=== PATIENT | male | born 1975 | race Two or more races ===

== ENCOUNTER 2022-01-23 13:44 | Inpatient (IN) | payer OTHER ==
[2022-01-23 14:33] VITALS: BMI 29.0
[2022-01-23] MEDS ORDERED: IBUPROFEN 400 MG TABLET (FP) PO PRN (15:10)
[2022-01-23] MEDS ORDERED: MAG HYDROX/AL HYDROX/SIMETH 30 ML UNIT-DOSE CUP PO PRN (15:10)
[2022-01-23] MEDS ORDERED: NICOTINE POLACRILEX 4 MG GUM BUC PRN (15:10)
[2022-01-23] MEDS ORDERED: LOPERAMIDE HCL 2 MG CAPSULE PO PRN (15:10)
[2022-01-23] MEDS ORDERED: BENZOCAINE/MENTHOL (CHLORASEPTIC ) LOZENGE MM PRN (15:10)
[2022-01-23] MEDS ORDERED: MAGNESIUM CITRATE 300 ML BOTTLE PO PRN (15:10)
[2022-01-23] MEDS ORDERED: NICOTINE 10 MG CARTRIDGE (INHALER) IH PRN (15:10)
[2022-01-23] MEDS ORDERED: ONDANSETRON *ODT* 4 MG TABLET SL PRN (15:10)
[2022-01-23] MEDS ORDERED: DICYCLOMINE HCL 10 MG CAPSULE PO PRN (15:10)
[2022-01-23] MEDS ORDERED: BISMUTH SUBSALICYLATE 524 MG/30 ML PO PRN (15:10)
[2022-01-23] MEDS ORDERED: ACETAMINOPHEN 325 MG TABLET (FP) PO PRN ×2 (15:10)
[2022-01-23] MEDS ORDERED: methaDONE HCL 10 MG TABLET (FOR DETOX USE ONLY) PO ONE (16:30)
[2022-01-23] MEDS: hydrOXYzine PAMOATE 25 MG CAPSULE (FP) PO SCH ×2 (18:27→22:32)
[2022-01-23] MEDS: cloNIDine HCL 0.1 MG TABLET PO PRN (22:32)
[2022-01-23] MEDS: THIAMINE HCL 100 MG TABLET (FP) PO SCH (22:32)
[2022-01-23] MEDS: MELATONIN 5 MG TABLETS PO SCH (22:32)
[2022-01-23] MEDS: METHYL SALICYLATE/MENTHOL OINT 30 GM TUBE TP SCH (22:34)
[2022-01-24] MEDS: hydrOXYzine PAMOATE 25 MG CAPSULE (FP) PO SCH ×5 (07:44→22:25)
[2022-01-24] MEDS ORDERED: methaDONE HCL 10 MG TABLET (FOR DETOX USE ONLY) ONE (09:14)
[2022-01-24] MEDS ORDERED: VENLAFAXINE HCL 37.5 MG TABLET PO SCH (10:15)
[2022-01-24] MEDS: METHYL SALICYLATE/MENTHOL OINT 30 GM TUBE TP SCH ×2 (10:40→22:25)
[2022-01-24] MEDS: METHOCARBAMOL 500 MG TABLET PO PRN (10:40)
[2022-01-24] MEDS: PRENATAL VITAMINS W/ FOLIC ACID TABLET (FP) PO SCH (10:40)
[2022-01-24 11:02] LABS: HEMATOCRIT 41.8 % (35.4-49); HEMOGLOBIN 13.6 GM/dL (11.7-16.9); MCH 29.7 pg (25.7-33.7); MCHC 32.6 g/dl (32.0-35.9); PLATELET COUNT 197 10^3/uL (134-434); RBC 4.59 M/mm3 (4.00-5.60); RDW 13.9 % (11.9-15.9); WHITE BLOOD COUNT 6.7 K/mm3 (4.0-10.0)
[2022-01-24 11:04] LABS: BLOOD UREA NITROGEN 16.6 mg/dL (7-18)
[2022-01-24 11:06] LABS: CREATININE 0.8 mg/dL (0.55-1.3)
[2022-01-24 11:07] LABS: BILIRUBIN,TOTAL 0.6 mg/dL (0.2-1); TOT PROT 5.7 g/dl (6.4-8.2)
[2022-01-24] MEDS ORDERED: ARIPiprazole 2 MG TABLET PO SCH (11:15)
[2022-01-24] MEDS: FLUoxetine HCL 20 MG CAPSULE PO SCH (11:17)
[2022-01-24] MEDS: ARIPiprazole 2 MG TABLET PO SCH (17:26)
[2022-01-24] MEDS: VENLAFAXINE HCL 37.5 MG TABLET PO SCH (17:27)
[2022-01-24] MEDS: THIAMINE HCL 100 MG TABLET (FP) PO SCH (22:24)
[2022-01-24] MEDS: MELATONIN 5 MG TABLETS PO SCH (22:24)
[2022-01-25] MEDS: hydrOXYzine PAMOATE 25 MG CAPSULE (FP) PO SCH ×5 (05:38→22:18)
[2022-01-25] MEDS: PRENATAL VITAMINS W/ FOLIC ACID TABLET (FP) PO SCH (09:53)
[2022-01-25] MEDS: METHOCARBAMOL 500 MG TABLET PO PRN ×2 (09:54→22:18)
[2022-01-25] MEDS: METHYL SALICYLATE/MENTHOL OINT 30 GM TUBE TP SCH ×2 (09:55→22:48)
[2022-01-25] MEDS: ARIPiprazole 2 MG TABLET PO SCH (09:55)
[2022-01-25] MEDS: FLUoxetine HCL 20 MG CAPSULE PO SCH (09:56)
[2022-01-25] MEDS ORDERED: VENLAFAXINE HCL 75 MG TABLET PO ONE (10:00)
[2022-01-25] MEDS ORDERED: methaDONE HCL 10 MG TABLET (FOR DETOX USE ONLY) PO ONE (10:00)
[2022-01-25] MEDS: cloNIDine HCL 0.1 MG TABLET PO PRN ×2 (18:14→22:17)
[2022-01-25] MEDS: MAGNESIUM HYDROX 2400MG/30ML ORAL SUSPENSION 30 ML CUP PO PRN (18:16)
[2022-01-25] MEDS: MELATONIN 5 MG TABLETS PO SCH (22:17)
[2022-01-25] MEDS: THIAMINE HCL 100 MG TABLET (FP) PO SCH (22:17)
[2022-01-26] MEDS: hydrOXYzine PAMOATE 25 MG CAPSULE (FP) PO SCH ×5 (05:49→22:12)
[2022-01-26] MEDS ORDERED: methaDONE HCL 10 MG TABLET (FOR DETOX USE ONLY) ONE (09:16)
[2022-01-26] MEDS: FLUoxetine HCL 20 MG CAPSULE PO SCH (10:48)
[2022-01-26] MEDS: METHOCARBAMOL 500 MG TABLET PO PRN ×2 (10:48→17:52)
[2022-01-26] MEDS: PRENATAL VITAMINS W/ FOLIC ACID TABLET (FP) PO SCH (10:48)
[2022-01-26] MEDS: METHYL SALICYLATE/MENTHOL OINT 30 GM TUBE TP SCH ×2 (10:50→22:34)
[2022-01-26] MEDS: ARIPiprazole 2 MG TABLET PO SCH (10:50)
[2022-01-26] MEDS: VENLAFAXINE HCL 37.5 MG TABLET PO SCH (10:51)
[2022-01-26] MEDS: MAGNESIUM HYDROX 2400MG/30ML ORAL SUSPENSION 30 ML CUP PO PRN ×2 (17:54→22:13)
[2022-01-26] MEDS: MELATONIN 5 MG TABLETS PO SCH (22:12)
[2022-01-26] MEDS: THIAMINE HCL 100 MG TABLET (FP) PO SCH (22:12)
[2022-01-27] MEDS: hydrOXYzine PAMOATE 25 MG CAPSULE (FP) PO SCH ×5 (05:44→22:32)
[2022-01-27] MEDS ORDERED: methaDONE HCL 10 MG TABLET (FOR DETOX USE ONLY) PO ONE (10:00)
[2022-01-27] MEDS: METHOCARBAMOL 500 MG TABLET PO PRN (10:43)
[2022-01-27] MEDS: PRENATAL VITAMINS W/ FOLIC ACID TABLET (FP) PO SCH (10:43)
[2022-01-27] MEDS: FLUoxetine HCL 20 MG CAPSULE PO SCH (10:43)
[2022-01-27] MEDS: METHYL SALICYLATE/MENTHOL OINT 30 GM TUBE TP SCH ×2 (10:44→22:32)
[2022-01-27] MEDS: ARIPiprazole 2 MG TABLET PO SCH (10:44)
[2022-01-27] MEDS: VENLAFAXINE HCL 37.5 MG TABLET PO SCH (10:45)
[2022-01-27] MEDS: MELATONIN 5 MG TABLETS PO SCH (22:32)
[2022-01-27] MEDS: THIAMINE HCL 100 MG TABLET (FP) PO SCH (22:32)
[2022-01-28] MEDS: hydrOXYzine PAMOATE 25 MG CAPSULE (FP) PO SCH (05:23)
[2022-01-28 09:49] VITALS: BP 148/106; PULSE 78; TEMP 98.1
== END 2022-01-28 10:05 | disposition home or self-care (01) | DRG 773 ==
LOC: YASAS 13:44 → Y6N 16:16
PROVIDERS: ADMIT Allergy & Immunology; ATTEND Surgery
PROC: HZ2ZZZZ Detoxification Services for Substance Abuse Treatment (ICD-10-PCS; principal; 2022-01-23)
DX: F11.23 Opioid dependence with withdrawal (principal); F12.20 Cannabis dependence, uncomplicated; F17.210 Nicotine dependence, cigarettes, uncomplicated; F19.282 Other psychoactive substance dependence with psychoactive substance-induced sleep disorder; F25.1 Schizoaffective disorder, depressive type; K21.9 Gastro-esophageal reflux disease without esophagitis; Z91.011 Allergy to milk products
CPT/HCPCS: 36415; 80053; 85027; 86780; 93005; 93010; C9803-CS; J0735; U0003; U0005

== ENCOUNTER 2022-10-14 11:17 | Inpatient (IN) | payer OTHER ==
[2022-10-14 11:55] VITALS: BMI 29.7
[2022-10-14] MEDS ORDERED: BISMUTH SUBSALICYLATE 262 MG/15 ML BTL PO PRN (12:44)
[2022-10-14] MEDS ORDERED: BENZOCAINE/MENTHOL (CHLORASEPTIC ) LOZENGE MM PRN (12:44)
[2022-10-14] MEDS ORDERED: NICOTINE 7 MG/24 HOURS TOPICAL PATCH TD PRN (12:44)
[2022-10-14] MEDS ORDERED: IBUPROFEN 400 MG TABLET (FP) PO PRN (12:44)
[2022-10-14] MEDS ORDERED: IBUPROFEN 600 MG TABLET (FP) PO PRN (12:44)
[2022-10-14] MEDS ORDERED: ONDANSETRON *ODT* 4 MG TABLET SL PRN (12:44)
[2022-10-14] MEDS ORDERED: NICOTINE POLACRILEX 2 MG GUM BUC PRN (12:44)
[2022-10-14] MEDS ORDERED: POLYETHYLENE GLYCOL (HEALTHYLAX) 3350 17 GM PACKET PO PRN (12:44)
[2022-10-14] MEDS ORDERED: ACETAMINOPHEN 325 MG TABLET (FP) PO PRN ×2 (12:44)
[2022-10-14] MEDS ORDERED: MAG HYDROX/AL HYDROX/SIMETH 30 ML UNIT-DOSE CUP PO PRN (12:44)
[2022-10-14] MEDS ORDERED: NICOTINE 10 MG CARTRIDGE (INHALER) IH PRN (12:44)
[2022-10-14] MEDS ORDERED: LOPERAMIDE HCL 2 MG CAPSULE PO PRN (12:44)
[2022-10-14] MEDS ORDERED: MAGNESIUM HYDROX 2400MG/30ML ORAL SUSPENSION 30 ML CUP PO PRN (12:44)
[2022-10-14] MEDS ORDERED: DICYCLOMINE HCL 10 MG CAPSULE PO PRN (12:44)
[2022-10-14] MEDS ORDERED: NALOXONE HCL (KLOXXADO) 8 MG SPRAY NS PRN (12:44)
[2022-10-14] MEDS ORDERED: methaDONE HCL 10 MG TABLET (FOR DETOX USE ONLY) PO ONE (14:00)
[2022-10-14 15:25] LABS: HEMATOCRIT 42.4 % (35.4-49); HEMOGLOBIN 14.4 GM/dL (11.7-16.9); MCH 30.1 pg (25.7-33.7); MCHC 33.9 g/dl (32.0-35.9); MEAN CELL VOLUME 88.8 fl (80-96); MEAN PLT VOLUME 8.5 fl (7.5-11.1); PLATELET COUNT 243 10^3/uL (134-434); RBC 4.77 M/mm3 (4.00-5.60); RDW 13.6 % (11.9-15.9); WHITE BLOOD COUNT 8.4 K/mm3 (4.0-10.0)
[2022-10-14 15:42] LABS: CALCIUM 9.5 mg/dL (8.5-10.1)
[2022-10-14 15:43] LABS: ALBUMIN 4.1 g/dl (3.4-5.0); BLOOD UREA NITROGEN 23.5 mg/dL (7-18)
[2022-10-14 15:45] LABS: CREATININE 0.9 mg/dL (0.55-1.3)
[2022-10-14 15:47] LABS: BILIRUBIN,TOTAL 0.7 mg/dL (0.2-1); TOT PROT 7.6 g/dl (6.4-8.2)
[2022-10-14] MEDS ORDERED: MELATONIN 5 MG TABLETS PO SCH (22:00)
[2022-10-14] MEDS: METHOCARBAMOL 500 MG TABLET PO PRN (22:40)
[2022-10-14] MEDS: MELATONIN 5 MG TABLETS PO SCH (22:40)
[2022-10-14] MEDS: FAMOTIDINE 20 MG TABLET PO SCH (22:40)
[2022-10-14] MEDS: THIAMINE HCL 100 MG TABLET (FP) PO SCH (22:40)
[2022-10-14] MEDS: hydrOXYzine PAMOATE 25 MG CAPSULE (FP) PO PRN (22:40)
[2022-10-15] MEDS: FAMOTIDINE 20 MG TABLET PO SCH ×2 (10:22→23:20)
[2022-10-15] MEDS: PRENATAL VITAMINS W/ FOLIC ACID TABLET (FP) PO SCH (10:22)
[2022-10-15] MEDS: METHOCARBAMOL 500 MG TABLET PO PRN (13:26)
[2022-10-15] MEDS: hydrOXYzine PAMOATE 25 MG CAPSULE (FP) PO PRN (13:26)
[2022-10-15] MEDS: MELATONIN 5 MG TABLETS PO SCH (23:20)
[2022-10-15] MEDS: THIAMINE HCL 100 MG TABLET (FP) PO SCH (23:21)
[2022-10-16] MEDS ORDERED: methaDONE HCL 10 MG TABLET (FOR DETOX USE ONLY) PO ONE (10:00)
[2022-10-16] MEDS: FAMOTIDINE 20 MG TABLET PO SCH ×2 (10:29→22:02)
[2022-10-16] MEDS: PRENATAL VITAMINS W/ FOLIC ACID TABLET (FP) PO SCH (10:29)
[2022-10-16] MEDS ORDERED: ARIPiprazole 2 MG TABLET PO ONE (11:53)
[2022-10-16] MEDS ORDERED: FLUoxetine HCL 20 MG CAPSULE PO ONE (11:53)
[2022-10-16] MEDS ORDERED: VENLAFAXINE HCL 37.5 MG TABLET PO ONE (11:54)
[2022-10-16] MEDS: MELATONIN 5 MG TABLETS PO SCH (22:01)
[2022-10-16] MEDS: THIAMINE HCL 100 MG TABLET (FP) PO SCH (22:02)
[2022-10-16] MEDS: METHOCARBAMOL 500 MG TABLET PO PRN (22:04)
[2022-10-17] MEDS: hydrOXYzine PAMOATE 25 MG CAPSULE (FP) PO PRN ×2 (00:54→22:33)
[2022-10-17] MEDS: FAMOTIDINE 20 MG TABLET PO SCH ×2 (10:01→22:33)
[2022-10-17] MEDS: FLUoxetine HCL 20 MG CAPSULE PO SCH (10:01)
[2022-10-17] MEDS: PRENATAL VITAMINS W/ FOLIC ACID TABLET (FP) PO SCH (10:01)
[2022-10-17] MEDS: VENLAFAXINE HCL 37.5 MG TABLET PO SCH (10:02)
[2022-10-17] MEDS: ARIPiprazole 2 MG TABLET PO SCH (10:02)
[2022-10-17] MEDS: THIAMINE HCL 100 MG TABLET (FP) PO SCH (22:32)
[2022-10-17] MEDS: MELATONIN 5 MG TABLETS PO SCH (22:32)
[2022-10-18] MEDS: METHOCARBAMOL 500 MG TABLET PO PRN (01:48)
[2022-10-18] MEDS ORDERED: methaDONE HCL 10 MG TABLET (FOR DETOX USE ONLY) PO ONE (10:00)
[2022-10-18] MEDS: VENLAFAXINE HCL 37.5 MG TABLET PO SCH (10:04)
[2022-10-18] MEDS: PRENATAL VITAMINS W/ FOLIC ACID TABLET (FP) PO SCH (10:04)
[2022-10-18] MEDS: ARIPiprazole 2 MG TABLET PO SCH (10:05)
[2022-10-18] MEDS: FAMOTIDINE 20 MG TABLET PO SCH ×2 (10:05→22:06)
[2022-10-18] MEDS: FLUoxetine HCL 20 MG CAPSULE PO SCH (10:35)
[2022-10-18] MEDS ORDERED: METHOCARBAMOL 500 MG TABLET PO ONE (18:38)
[2022-10-18] MEDS: THIAMINE HCL 100 MG TABLET (FP) PO SCH (22:06)
[2022-10-18] MEDS: MELATONIN 5 MG TABLETS PO SCH (22:06)
[2022-10-19] MEDS: METHOCARBAMOL 500 MG TABLET PO PRN (00:55)
[2022-10-19] MEDS: VENLAFAXINE HCL 37.5 MG TABLET PO SCH (09:17)
[2022-10-19] MEDS: PRENATAL VITAMINS W/ FOLIC ACID TABLET (FP) PO SCH (09:17)
[2022-10-19] MEDS: ARIPiprazole 2 MG TABLET PO SCH (09:17)
[2022-10-19] MEDS: FAMOTIDINE 20 MG TABLET PO SCH (09:17)
[2022-10-19] MEDS: FLUoxetine HCL 20 MG CAPSULE PO SCH (09:17)
[2022-10-19 09:54] VITALS: BP 140/77; PULSE 103; RESP 18; TEMP 98
== END 2022-10-19 10:00 | disposition home or self-care (01) | DRG 773 ==
LOC: YASAS 11:17 → Y6N 13:42
PROVIDERS: ADMIT Allergy & Immunology; ATTEND Surgery
PROC: HZ2ZZZZ Detoxification Services for Substance Abuse Treatment (ICD-10-PCS; principal; 2022-10-14)
DX: F11.23 Opioid dependence with withdrawal (principal); F10.20 Alcohol dependence, uncomplicated; F14.20 Cocaine dependence, uncomplicated; F12.20 Cannabis dependence, uncomplicated; F19.282 Other psychoactive substance dependence with psychoactive substance-induced sleep disorder; F19.24 Other psychoactive substance dependence with psychoactive substance-induced mood disorder; F25.1 Schizoaffective disorder, depressive type; F33.1 Major depressive disorder, recurrent, moderate; K21.9 Gastro-esophageal reflux disease without esophagitis; Z62.810 Personal history of physical and sexual abuse in childhood; Z91.410 Personal history of adult physical and sexual abuse; Z91.011 Allergy to milk products; Z59.00 Homelessness unspecified; Z56.0 Unemployment, unspecified
CPT/HCPCS: 36415; 80053; 84520; 85027; 86780; 87811; C9803-CS; U0003; U0005